=== PATIENT | male | born 1945 | race Caucasian/White ===

== ENCOUNTER 2017-09-13 07:06 | Emergency (ER) | payer OTHER ==
[2017-09-13 07:18] VITALS: TEMP 98.4; BMI 25.6
[2017-09-13] MEDS ORDERED: SODIUM CHLORIDE 1,000 ML IV STA ×3 (07:37→09:48)
[2017-09-13] MEDS ORDERED: ASPIRIN CHEWABLE PO STA (07:50)
--- NOTE | 2017-09-13 08:00 | DI ---
EXAM: Portable chest HISTORY: Chest pain COMPARISON: None. FINDINGS: The heart is top normal in size. Atherosclerotic changes are seen involving arch. They a re benign granulomatous changes. Focal opacity is noted medially at the right lung base. The left rachel ng is clear. Calcified lymph nodes are seen in the right paratracheal region.. There is a right mona ulder arthroplasty. IMPRESSION: Heart is top normal in size. Focal opacity medial right lung base which may represent a small focus of infiltrate. Suggest follow -up comparative two-view chest to ensure resolution
--- NOTE | 2017-09-13 08:55 | ED.PDOC ---
General ED Provider: Dr. LOBO APONTE-ER Chief Complaint: Chest Pain Stated Complaint: brought in by ems for chest pain radiating into the neck-- woke him up--no pain now Time Seen by Physician: 07:15 Mode of Arrival: Stretcher Information Source: Patient, Family Exam Limitations: No limitations Primary Care Provider: TONY DESAI Nursing and Triage Documentation Reviewed and Agree: Yes Reviewed sepsis parameters & appropriate labs ordered?: Yes System Inflammatory Response Syndrome: Not Applicable Sepsis Protocol: For patient's 13 years and over: Temp is 96.8 and below OR 101 and greater Pulse >90 BPM Resp >20/minute Acutely Altered Mental Status Are patient's symptoms suggestive of a new infection, such as: -Pneumonia -Skin, Soft Tissue -Endocarditis -UTI -Bone, Joint Infection -Implantable Device -Acute Abdominal Infection -Wound Infection -Meningitis -Blood Stream Catheter Infection -Unknown Cardiovascular Complaint Exam - Chest Pain Complaint/Exam Onset: Sudden Duration: a few min Symptoms Are: Resolved Timing: Constant Initial Severity: Moderate Current Severity: None Location: Reports: Diffuse Pain Radiates: Reports: Neck Character: Reports: Dull, Aching, Heaviness, Pressure Aggravating: Reports: None Alleviating: Reports: None Associated Signs and Symptoms: Reports: Back pain TAD Risk Factors: Reports: None Prior Care for this Complaint: Yes Recent Stress Test: No Recent Echo/LV Function: No JVD Present: No Subcutaneous Emphysema Present: No Diminshed Breath Sounds: No Bilateral Pulses Present: Yes Unequal Pulses Noted: No Differential Diagnoses: Acute IA, ACS, Unstable Angina Quality Indicator For Non-Traumatic Chest Pain/Syncope: EKG Performed Review of Systems - Review Of Systems Constitutional: Reports: No symptoms Eyes: Reports: No symptoms Ears, Nose, Mouth, Throat: Reports: No symptoms Respiratory: Reports: No symptoms Cardiac: Reports: Chest pain GI: Reports: No symptoms : Reports: No symptoms Musculoskeletal: Reports: Neck pain Skin: Reports: No symptoms Neurological: Reports: No symptoms Endocrine: Reports: No symptoms Hematologic/Lymphatic: Reports: No symptoms All Other Systems: Reviewed and Negative Past Medical History - Past Medical History Previously Healthy: Yes Endocrine: Reports: Unknown Cardiovascular: Reports: Hypertension Respiratory: Reports: Unknown Hematological: Reports: Unknown Gastrointestinal: Reports: Unknown Genitourinary: Reports: Unknown Neuro/Psych: Reports: Unknown Musculoskeletal: Reports: Back Pain Cancer: Reports: Unknown - Surgical History General Surgical History: Reports: Unknown - Family History Family History: Reports: Unknown - Social History Smoking Status: Never smoker Hx Substance Use: No Alcohol Screening: Occasionally Lives: With family Physical Exam - Physical Exam Appearance: Well-appearing, No pain distress, Well-nourished Eyes: RAMSEY, EOMI, Conjunctiva clear ENT: Ears normal, Nose normal, Oropharynx normal Neck: Supple Respiratory: Airway patent, Breath sounds clear, Breath sounds equal, Respirations nonlabored Cardiovascular: RRR, Pulses normal, No rub, No murmur GI/: Soft, Nontender, No masses, Bowel sounds normal, No Organomegaly Musculoskeletal: Normal strength, ROM intact, No edema, No calf tenderness Skin: Warm, Dry, Normal color Neurological: Sensation intact, Motor intact, Reflexes intact, Cranial nerves intact, Alert, Oriented Psychiatric: Affect appropriate, Mood appropriate, Anxious Interpretation - Radiology Interpretation Radiology Interpretation By: Radiologist Radiology Results: Positive Exam Interpreted: CXR ("focal opacity right medial lung base") - EKG Interpretation Time of EKG #1: 09:15 Rate: Normal [place]: Right (rbbb) ST Segment: Normal Interpretation: rbbb Procedures - Intubation Indication: Present: Altered Mental Status, Airway Protection Time of Intubation: 10:59 Medications: Yes: Norcuron, Succinylcholine, Propofol Type of Tube Used: Endotracheal Tube Size: 7.5 Cricoid Pressure Used: Yes Tube Gracia Used: Yes Number of Attempts: 1 Suction Used: Yes Glidescope Used: Yes CO2 Detector Used: Yes Lung Sounds Equal Bilaterally: Yes Intubation Complications: Present: No complications Tube Inserted By: r bethany Tube Placement Verified by X-ray: Yes Re-Evaluation - Re-Evaluation Time of Re-Evaluation: 08:57 Status: Improved Vital Signs Stable: Yes Pain Level: 1 Appearance: NAD Lungs: Clear Skin: Warm and Dry Neuro: Alert and Oriented X3 CV: RRR - Re-Evaluation Time of Re-Evaluation: 10:35 Status: Worse (patient difficult to arouse--very somnolent) Vital Signs Stable: No (bp down to 70 systolic --levophed started) Pain Level: 0 Appearance: NAD Skin: Warm and Dry CV: RRR Additional Comments: dr desai and his brother here and aware of the above issue Critical Care Note - Critical Care Note Total Time (mins): 60 Course - Course Hematology/Chemistry: 09/13/17 07:15 09/13/17 07:15 Orders, Labs, Meds: Lab Review 09/13/17 09/13/17 09/13/17 07:15 07:15 07:15 WBC 18.22 H RBC 3.00 L Hgb 9.9 L Hct 30.0 L MCV 100.0 H MCH 33.0 H MCHC 33.0 RDW Coeff of Alejandrina 15.2 H Plt Count 239 Immature Gran % (Auto) 0.5 Neut % (Auto) 86.8 Lymph % (Auto) 4.3 L [place] % (Auto) 8.0 Eos % (Auto) 0.2 Baso % (Auto) 0.2 Immature Gran # (Auto) 0.1 Neut # (Auto) 15.8 H Lymph # (Auto) 0.8 [place] # (Auto) 1.5 Eos # (Auto) 0.0 Baso # (Auto) 0.0 D-Dimer (Manual) 685.89 Puncture Site O2 Saturation ABG pH ABG pCO2 ABG pO2 ABG HCO3 ABG Total CO2 ABG Base Excess Sodium 131 L Potassium 6.0 H Chloride 101 Carbon Dioxide 12 L Anion Gap 24.0 BUN 66 H* Creatinine 5.27 H* Estimated GFR (MDRD) 11.00 BUN/Creatinine Ratio 12.52 Glucose 93 Lactic Acid Calcium 8.7 Total Bilirubin 1.6 H AST 290 H ALT 89 H Alkaline Phosphatase 58 Total Creatine Kinase 76820 CK-MB (CK-2) 169.4 H* CK-MB (CK-2) % 1.18525 Troponin I 1.1450 H* Total Protein 7.2 Albumin 3.2 L Globulin 4.0 Albumin/Globulin Ratio 0.80 Amylase 76 Lipase 9 Procalcitonin TSH Free T4 Salicylate Level mg/dL Acetaminophen Plasma/Serum Alcohol 09/13/17 09/13/17 09/13/17 07:15 07:15 07:40 WBC RBC Hgb Hct MCV MCH MCHC RDW Coeff of Alejandrina Plt Count Immature Gran % (Auto) Neut % (Auto) Lymph % (Auto) [place] % (Auto) Eos % (Auto) Baso % (Auto) Immature Gran # (Auto) Neut # (Auto) Lymph # (Auto) [place] # (Auto) Eos # (Auto) Baso # (Auto) D-Dimer (Manual) Puncture Site O2 Saturation ABG pH ABG pCO2 ABG pO2 ABG HCO3 ABG Total CO2 ABG Base Excess Sodium Potassium Chloride Carbon Dioxide Anion Gap BUN Creatinine Estimated GFR (MDRD) BUN/Creatinine Ratio Glucose Lactic Acid Calcium Total Bilirubin AST ALT Alkaline Phosphatase Total Creatine Kinase CK-MB (CK-2) 165.5 H* CK-MB (CK-2) % Troponin I Total Protein Albumin Globulin Albumin/Globulin Ratio Amylase Lipase Procalcitonin TSH 0.518 Free T4 0.89 Salicylate Level mg/dL < 5.0 Acetaminophen < 3 L Plasma/Serum Alcohol < 10.0 09/13/17 09/13/17 09/13/17 09:11 10:30 10:30 WBC RBC Hgb Hct MCV MCH MCHC RDW Coeff of Alejandrina Plt Count Immature Gran % (Auto) Neut % (Auto) Lymph % (Auto) [place] % (Auto) Eos % (Auto) Baso % (Auto) Immature Gran # (Auto) Neut # (Auto) Lymph # (Auto) [place] # (Auto) Eos # (Auto) Baso # (Auto) D-Dimer (Manual) Puncture Site Lbrach O2 Saturation 89.0 L ABG pH 7.216 L* ABG pCO2 40.2 ABG pO2 68.0 L ABG HCO3 16.3 L ABG Total CO2 18 L ABG Base Excess -11 L Sodium Potassium Chloride Carbon Dioxide Anion Gap BUN Creatinine Estimated GFR (MDRD) BUN/Creatinine Ratio Glucose Lactic Acid 9.3 Calcium Total Bilirubin AST ALT Alkaline Phosphatase Total Creatine Kinase CK-MB (CK-2) CK-MB (CK-2) % Troponin I Total Protein Albumin Globulin Albumin/Globulin Ratio Amylase Lipase Procalcitonin 4.94 TSH Free T4 Salicylate Level mg/dL Acetaminophen Plasma/Serum Alcohol Orders Category Date Time Status ABG DRAW REQUEST Stat CARDIO 09/13/17 09:11 Ordered EKG-(ED ONLY) Stat CARDIO 09/13/17 07:14 Ordered Canopy Stringer [ED FARMWORKER VEGETABLE APPLIED] .ONCE EMERGENCY 09/13/17 07:15 Active Matta [ED CATHETER INSERTION AND CARE] .ONCE EMERGENCY 09/13/17 10:37 Active IV [ED IV/MEDIPORT/POWERPORT] .ONCE EMERGENCY 09/13/17 07:15 Active OXYGEN [ED APPLY O2] .ONCE EMERGENCY 09/13/17 09:45 Active AMYLASE Stat LAB 09/13/17 07:15 Completed ARTERIAL BLOOD GAS [ABG] Stat LAB 09/13/17 09:11 Completed BLOOD ALCOHOL Stat LAB 09/13/17 07:15 Completed BLOOD CULTURE (ED ONLY) Stat LAB 09/13/17 10:30 Received CBC W/ AUTO DIFF Stat LAB 09/13/17 07:15 Completed COMPREHENSIVE METABOLIC PANEL Stat LAB 09/13/17 07:15 Completed CREATINE KINASE Stat LAB 09/13/17 07:15 Completed D-DIMER Stat LAB 09/13/17 07:15 Completed FREE T4 (FREE THYROXINE) Stat LAB 09/13/17 07:15 Completed LACTIC ACID Stat LAB 09/13/17 10:30 Completed LIPASE Stat LAB 09/13/17 07:15 Completed PROCALCITONIN Stat LAB 09/13/17 10:30 Completed SALICYLATE Stat LAB 09/13/17 07:40 Completed TROPONIN I Stat LAB 09/13/17 07:15 Completed TSH [THYROID STIMULATING HORMONE] Stat LAB 09/13/17 07:15 Completed TYLENOL LEVEL [ACETAMINOPHEN] Stat LAB 09/13/17 07:40 Completed URINALYSIS C & S IF INDICATED Stat LAB 09/13/17 09:50 Ordered URINE DRUG SCREEN (RAPID FOR ED) [DRUG SCREEN, URINE, LAB 09/13/17 09:50 Ordered RAPID] Stat 0.9 % Sodium Chloride [Saline Flush] MEDS 09/13/17 07:15 Active 1 syr IVF PRN PRN 0.9 % Sodium Chloride [Sodium Chloride] 246 ml MEDS 09/13/17 10:30 Active Norepinephrine Bitartrate Inj [Levophed] 4 mg IV 8 mcg/min Aspirin [Aspirin Chewable] MEDS 09/13/17 07:50 Discontinued 324 mg PO ONCE STA Dextrose 50 % in Water [Dextrose 50%-Water Abboject] MEDS 09/13/17 09:09 Discontinued 50 ml IVP ONCE STA Insulin Regular, Human [Humulin R] MEDS 09/13/17 09:12 Discontinued 5 unit IVP ONCE STA Lidocaine HCl [Uro-Jet] MEDS 09/13/17 10:45 Discontinued 10 ml MUCOUSMEMB .STK-MED ONE Lidocaine HCl [Uro-Jet] MEDS 09/13/17 10:37 Discontinued 10 ml MUCOUSMEMB ONCE STA Piperacillin Sodium/Tazobactam [Zosyn 2.25 gm] 2.25 gm MEDS 09/13/17 11:12 Active 0.9 % Sodium Chloride [Sodium Chloride] 50 ml IV ONCE Propofol Inj [Diprivan 20 ml Vial] MEDS 09/13/17 10:58 Discontinued 80 mg IVP ONCE STA Sodium Chloride 0.9% [Sodium Chloride] 1,000 ml MEDS 09/13/17 09:48 Discontinued IV 1,000 mls/hr Sodium Chloride 0.9% [Sodium Chloride] 1,000 ml MEDS 09/13/17 09:13 Discontinued IV 125 mls/hr Sodium Chloride 0.9% [Sodium Chloride] 1,000 ml MEDS 09/13/17 07:37 Discontinued IV BOLUS Succinylcholine Chloride [Anectine] MEDS 09/13/17 10:57 Discontinued 100 mg IVP ONCE STA Vecuronium [place] [Norcuron] MEDS 09/13/17 10:58 Discontinued 8 mg IVP ONCE STA CT HEAD W/O CONTRAST Stat RADS 09/13/17 10:37 Completed CXR [CHEST, 1V AP ONLY] Stat RADS 09/13/17 07:19 Completed CXR [CHEST, 1V AP ONLY] Stat RADS 09/13/17 10:59 Taken Medications Generic Name Dose Route Start Last Admin Trade Name Freq PRN Reason Stop Dose Admin Norepinephrine Bitartrate 4 mg 250 mls @ 30 mls/hr 09/13/17 10:30 09/13/17 10 :56 / Sodium Chloride IV 4 mcg/min .Q8H20M PIETRO 15 mls/hr Protocol Titration 8 MCG/MIN Piperacillin Sod/Tazobactam 50 mls @ 50 mls/hr 09/13/17 11:12 Sod 2.25 gm/ Sodium Chloride IV 09/13/17 12:11 ONCE STA Sodium Chloride 1 syr 09/13/17 07:15 09/13/17 09:25 Saline Flush IVF 1 syr PRN PRN Administration To flush IV Discontinued Medications Generic Name Dose Route Start Last Admin Trade Name Freq PRN Reason Stop Dose Admin Aspirin 324 mg 09/13/17 07:50 09/13/17 07:57 Aspirin Chewable PO 09/13/17 07:51 324 mg ONCE STA Administration Dextrose 50 ml 09/13/17 09:09 09/13/17 09:23 Dextrose 50%-Water Abboject IVP 09/13/17 09:10 50 ml ONCE STA Administration Sodium Chloride 1,000 mls @ 1,000 mls/hr 09/13/17 07:37 09/13/17 07:57 Sodium Chloride IV 09/13/17 08:36 1,000 mls/hr BOLUS STA Administration Sodium Chloride 1,000 mls @ 125 mls/hr 09/13/17 09:13 09/13/17 09:25 Sodium Chloride IV 09/13/17 17:12 125 mls/hr .Q8H STA Administration Sodium Chloride 1,000 mls @ 1,000 mls/hr 09/13/17 09:48 09/13/17 09:50 Sodium Chloride IV 09/13/17 10:12 1,000 mls/hr .Q1H STA Administration Insulin Human Regular 5 unit 09/13/17 09:12 09/13/17 09:22 Humulin R IVP 09/13/17 09:13 5 unit ONCE STA Administration Lidocaine HCl 10 ml 09/13/17 10:37 Uro-Jet MUCOUSMEMB 09/13/17 10:38 ONCE STA Propofol 80 mg 09/13/17 10:58 09/13/17 11:07 Diprivan 20 Ml Vial IVP 09/13/17 10:59 80 mg ONCE STA Administration Succinylcholine Chloride 100 mg 09/13/17 10:57 09/13/17 11:02 Anectine IVP 09/13/17 10:58 100 mg ONCE STA Administration Vecuronium [place] 8 mg 09/13/17 10:58 09/13/17 11:10 Norcuron IVP 09/13/17 10:59 8 mg ONCE STA Administration dr desai asked for the patient to be transferred to [facility] but they indicated they were on diversion--consulted his brother--indicated ok for [facility]ze transfer ) Vital Signs: Temp Pulse Resp BP Pulse Ox 09/13/17 10:56 77 20 131/71 09/13/17 10:26 75 20 77/47 L 09/13/17 10:12 84/50 L 09/13/17 07:08 98.4 F 89 20 105/55 L 96 KEHINDE Risk Score KEHINDE Risk Score: Risk Score Odds of by 30D 0 0.1 (0.1-0.2) 1 0.3 (0.2-0.3) 2 0.4 (0.3-0.5) 3 0.7 (0.6-0.9) 4 1.2 (1.0-1.5) 5 2.2 (1.9-2.6) 6 3.0 (2.5-3.6) 7 4.8 (3.8-6.1) Departure - Departure Time of Disposition: 11:26 Disposition: TSF SHORT-TRM HOSP Discharge Problem: BELIA (acute kidney injury), Hyperkalemia, Elevated troponin I measurement Chest pain Qualifiers: Chest pain type: unspecified Qualified Code(s): R07.9 - Chest pain, unspecified Rhabdomyolysis Qualifiers: Rhabdomyolysis type: non-traumatic Qualified Code(s): M62.82 - Rhabdomyolysis Instructions: Acute Kidney Injury (DC) Condition: Poor Pt referred to PMD for follow-up: Yes IPMP verified?: No Allergies/Adverse Reactions: Allergies No Known Allergies Allergy (Verified 09/13/17 07:18) Home Medications: Ambulatory Orders Ferrous Sulfate 325 mg PO BID 11/10/13 Losartan Potassium [Cozaar] 100 mg PO DAILY 11/10/13 [place]-3 Fatty Acids/Fish Oil [Fish Oil 1,000 mg Capsule] 3 each PO DAILY Hydrocodone Bit/Acetaminophen [[place] 5-325] 1 each PO Q6HR PRN 09/13/17 Transfer Form Completed: Yes Disposition Discussed With: Family
[2017-09-13] MEDS ORDERED: DEXTROSE 50%-WATER ABBOJECT IVP STA (09:09)
[2017-09-13] MEDS ORDERED: HUMULIN R IVP STA (09:12)
[2017-09-13] MEDS ORDERED: LEVOPHED 4 MG in SODIUM CHLORIDE 246 ML IV SCH (10:30)
[2017-09-13] MEDS ORDERED: URO-JET MUCOUSMEMB STA (10:37)
[2017-09-13] MEDS ORDERED: URO-JET MUCOUSMEMB ONE (10:45)
[2017-09-13] MEDS ORDERED: ANECTINE IVP STA (10:57)
[2017-09-13] MEDS ORDERED: NORCURON IVP STA ×2 (10:58→11:42)
[2017-09-13] MEDS ORDERED: DIPRIVAN 20 ML VIAL IVP STA (10:58)
--- NOTE | 2017-09-13 11:05 | CT ---
The EXAM: CT scan of head without contrast. HISTORY: CHANGE COMPARISON: None. TECHNIQUE: Axial scans acquired at 5 mm slice thicknesses. MPR coronal and sagittal sequence complet ed FINDINGS: There is no intra or extra-axial hemorrhage seen. No mass or shift of midline structures is seen. There is some cortical atrophy involving the frontal and parietal lobes. There is decrease d attenuation seen in the periventricular matter consistent with chronic microvascular ischemic whipple es. No acute large vessel cerebrovascular accident is seen. Ventricles appear normal considering de gree of atrophy. There are no air-fluid levels visualized sinuses and no opacification mastoid air c ells is seen. IMPRESSION: 1. No acute intracranial finding is seen. 2. No intracranial hemorrhage or large vessel cerebrovascular accident identified. 3. Age appropriate cortical atrophy is seen as well as some chronic white matter ischemic changes.
--- NOTE | 2017-09-13 11:10 | ED.PDOC ---
Procedures - Intubation Indication: Present: Altered Mental Status Time of Intubation: 11:03 Medications: Yes: Succinylcholine, Propofol Type of Tube Used: Endotracheal Cricoid Pressure Used: No Tube Gracia Used: Yes Number of Attempts: 1 Suction Used: No Glidescope Used: No CO2 Detector Used: Yes Lung Sounds Equal Bilaterally: Yes Intubation Complications: Present: No complications Tube Inserted By: Ketan montoya CRNA Tube Placement Verified by X-ray: Yes Conscious Sedation - Pre-op Assessment Weight: 154 lb 1.65 oz Surgical History: RIGHT HIP REPLACEMENT - Medical History Past Medical History: Hypertension, Other Other History: "flapper valve" - Physical Exam Heart Rate/Rhythm: Regular Rate
[2017-09-13] MEDS ORDERED: ZOSYN 2.25 GM 2.25 GM in SODIUM CHLORIDE 50 ML IV STA (11:12)
[2017-09-13 11:13] VITALS: BP 131/71
--- NOTE | 2017-09-13 11:56 | DI ---
EXAM: Portable chest HISTORY: Intubation COMPARISON: Single-view chest performed earlier the same day FINDINGS: The tip of an endotracheal tube is in good position above the mimi. The cardiomediastin al silhouette is stable. Calcified lymph nodes are seen in the right paratracheal region. There are low lung volumes with mild central congestion. IMPRESSION: Stable cardiomediastinal silhouette with mild central congestion. Endotracheal tube is satisfactory position
== END 2017-09-13 12:05 | disposition short-term general hospital (02) ==
LOC: ED 07:06
DX: N17.9 Acute kidney failure, unspecified (principal); R07.9 Chest pain, unspecified; M62.82 Rhabdomyolysis; E87.5 Hyperkalemia; M54.2 Cervicalgia; I10 Essential (primary) hypertension; R41.82 Altered mental status, unspecified; R79.89 Other specified abnormal findings of blood chemistry; M54.5 Low back pain
CPT/HCPCS: 36415; 80053; 80306; 80307; 81001; 82150; 82550; 82553; 82803; 83605; 83690; 84145; 84439; 84443; 84484; 85025; 85379; 87040; 93005; 93010; 96361; 96365; 96367; 96375; 96376; 99291

== ENCOUNTER 2017-09-18 15:25 | Emergency (ER) ==
[2017-09-18 15:42] VITALS: BP 145/59; TEMP 97.8; BMI 27.2
[2017-09-18] MEDS ORDERED: NARCAN IVP STA ×2 (16:20→17:24)
--- NOTE | 2017-09-18 16:31 | CT ---
EXAM: CT Head HISTORY: Altered COMPARISON: 09/13/2017 TECHNIQUE: CT head performed without contrast FINDINGS: There is no mass effect, midline shift, or intracranial hemmorhage. Nicholson white differenti ation is preserved. There is no extra-axial collection. The ventricles, sulci, and basal cisterns a re patent and symmetric. There is mild chronic ischemic disease of the white matter and cerebral vol ume loss. There is no depressed calvarial fracture. The mastoid air cells are clear. Mild mucosal t hickening ethmoid air cells. There are intracranial atherosclerotic calcifications. 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 IMPRESSION: 1. No acute intracranial abnormality. 2. Mild chronic ischemic disease of the white matter and cerebral volume loss. 3. Mild sinusitis.
--- NOTE | 2017-09-18 17:14 | ED.PDOC ---
General ED Provider: Dr. KARLA SIDHU Chief Complaint: Altered Mental Status Stated Complaint: ALTERED MENTAL STATUS Time Seen by Physician: 15:39 Mode of Arrival: Wheelchair Information Source: Family Exam Limitations: No limitations Primary Care Provider: TONY VASQUEZ Referred to ED by: Other (A BOTTLE OF NORCO CONTAINING ABOUT 90 PILLS IS MISSING) Nursing and Triage Documentation Reviewed and Agree: Yes (WAS D/C FROM [facility] ON September) Reviewed sepsis parameters & appropriate labs ordered?: Yes (ARRIVED LETHARGIC BUT EASILY AROUSABLE) System Inflammatory Response Syndrome: Not Applicable Sepsis Protocol: For patient's 13 years and over: Temp is 96.8 and below OR 101 and greater Pulse >90 BPM Resp >20/minute Acutely Altered Mental Status Are patient's symptoms suggestive of a new infection, such as: -Pneumonia -Skin, Soft Tissue -Endocarditis -UTI -Bone, Joint Infection -Implantable Device -Acute Abdominal Infection -Wound Infection -Meningitis -Blood Stream Catheter Infection -Unknown System Inflammatory Response Syndrome: Not Applicable Review of Systems - Review Of Systems Constitutional: Reports: No symptoms Eyes: Reports: No symptoms Ears, Nose, Mouth, Throat: Reports: No symptoms Respiratory: Reports: No symptoms Cardiac: Reports: No symptoms GI: Reports: No symptoms : Reports: No symptoms Musculoskeletal: Reports: No symptoms Skin: Reports: No symptoms Neurological: Reports: Other (ALTERED LOC ) Endocrine: Reports: No symptoms Hematologic/Lymphatic: Reports: No symptoms All Other Systems: Reviewed and Negative Past Medical History - Past Medical History Previously Healthy: Yes Endocrine: Reports: Unknown Cardiovascular: Reports: Hypertension Respiratory: Reports: Unknown Hematological: Reports: Unknown Gastrointestinal: Reports: Unknown Genitourinary: Reports: Unknown Neuro/Psych: Reports: Unknown Musculoskeletal: Reports: Back Pain Cancer: Reports: Unknown - Surgical History General Surgical History: Reports: Unknown - Family History Family History: Reports: Unknown - Social History Smoking Status: Never smoker Hx Substance Use: No Alcohol Screening: Occasionally Physical Exam - Physical Exam Appearance: Well-appearing Eyes: RAMSEY, EOMI ([place] PUPILS ) ENT: Ears normal, Nose normal, Oropharynx normal Respiratory: Airway patent, Breath sounds clear, Breath sounds equal, Respirations nonlabored Cardiovascular: RRR, Pulses normal, No rub, No murmur GI/: Soft, Nontender, No masses, Bowel sounds normal, No Organomegaly Musculoskeletal: Normal strength, ROM intact, No edema, No calf tenderness Skin: Warm, Dry, Normal color Neurological: Sensation intact, Motor intact, Reflexes intact, Cranial nerves intact, Alert, Oriented Psychiatric: Affect appropriate, Mood appropriate Interpretation - Radiology Interpretation Radiology Interpretation By: Radiologist Radiology Results: No acute changes Exam Interpreted: CT Scan Re-Evaluation - Re-Evaluation Time of Re-Evaluation: 16:32 (POST NARCAN NOTED TO BE AOX3 NOT LETHARGIC) Status: Improved Vital Signs Stable: Yes Pain Level: 0 Appearance: NAD Lungs: Clear Skin: Warm and Dry Neuro: Alert and Oriented X3 CV: RRR Physician Notification - Case Discussed Physician Notified: PMD Time of Notification: 17:16 (TRANSFER ) Critical Care Note - Critical Care Note Total Time (mins): 0 Course - Course Hematology/Chemistry: 09/18/17 15:52 09/18/17 15:52 Orders, Labs, Meds: Lab Review 09/18/17 09/18/17 09/18/17 15:52 15:52 15:52 WBC 9.32 RBC 2.87 L Hgb 9.2 L Hct 28.9 L MCV 100.7 H MCH 32.1 H MCHC 31.8 RDW Coeff of Alejandrina 14.9 H Plt Count 259 Immature Gran % (Auto) 0.6 Neut % (Auto) 74.5 Lymph % (Auto) 12.0 Till[place] % (Auto) 10.2 H Eos % (Auto) 2.1 Baso % (Auto) 0.6 Immature Gran # (Auto) 0.1 Neut # (Auto) 6.9 Lymph # (Auto) 1.1 Tillman # (Auto) 1.0 Eos # (Auto) 0.2 Baso # (Auto) 0.1 Sodium 139 Potassium 4.1 Chloride 102 Carbon Dioxide 26 Anion Gap 15.1 BUN 22 H Creatinine 1.17 H Estimated GFR (MDRD) 61.00 BUN/Creatinine Ratio 18.80 Glucose 105 Calcium 9.7 Total Bilirubin 1.1 AST 92 H ALT 75 Alkaline Phosphatase 55 L Total Creatine Kinase 1650 CK-MB (CK-2) 45.6 H* CK-MB (CK-2) % 2.65284 Troponin I 0.1120 Total Protein 6.9 Albumin 2.9 L Globulin 4.0 Albumin/Globulin Ratio 0.73 Procalcitonin 16.80 TSH Free T4 Salicylate Level mg/dL Acetaminophen 09/18/17 09/18/17 09/18/17 15:52 15:52 15:52 WBC RBC Hgb Hct MCV MCH MCHC RDW Coeff of Alejandrina Plt Count Immature Gran % (Auto) Neut % (Auto) Lymph % (Auto) [place] % (Auto) Eos % (Auto) Baso % (Auto) Immature Gran # (Auto) Neut # (Auto) Lymph # (Auto) [place] # (Auto) Eos # (Auto) Baso # (Auto) Sodium Potassium Chloride Carbon Dioxide Anion Gap BUN Creatinine Estimated GFR (MDRD) BUN/Creatinine Ratio Glucose Calcium Total Bilirubin AST ALT Alkaline Phosphatase Total Creatine Kinase CK-MB (CK-2) CK-MB (CK-2) % Troponin I Total Protein Albumin Globulin Albumin/Globulin Ratio Procalcitonin TSH 0.915 Free T4 1.16 Salicylate Level mg/dL < 5.0 Acetaminophen < 3 L Orders Category Date Time Status EKG-(ED ONLY) Stat CARDIO 09/18/17 15:38 Completed EKG-(IP & OP ONLY) DAILY CARDIO 09/20/17 06:00 Stop Req EKG-(IP & OP ONLY) DAILY CARDIO 09/21/17 06:00 Stop Req BLOOD GLUCOSE MONITORING ACCUCHECK Q6H CARE 09/18/17 17:09 Inactive INTAKE & OUTPUT Q8HR CARE 09/18/17 17:09 Inactive VITAL SIGNS Q4HR CARE 09/18/17 17:09 Inactive ED IV/MEDIPORT/POWERPORT .ONCE EMERGENCY 09/18/17 15:38 Active ASPIRIN LEVEL [SALICYLATE] Stat LAB 09/18/17 15:52 Completed BLOOD CULTURE (ED ONLY) Stat LAB 09/18/17 15:52 Received CBC W/ AUTO DIFF Stat LAB 09/18/17 15:52 Completed COMPREHENSIVE METABOLIC PANEL Stat LAB 09/18/17 15:52 Completed CREATINE KINASE Q8H LAB 09/18/17 23:15 Stop Req CREATINE KINASE Stat LAB 09/18/17 15:52 Completed FREE T4 (FREE THYROXINE) Stat LAB 09/18/17 15:52 Completed PROCALCITONIN Stat LAB 09/18/17 15:52 Completed THYROID STIMULATING HORMONE Stat LAB 09/18/17 15:52 Completed TROPONIN I Q8H LAB 09/18/17 23:15 Stop Req TROPONIN I Stat LAB 09/18/17 15:52 Completed TYLENOL LEVEL [ACETAMINOPHEN] Stat LAB 09/18/17 15:52 Completed URINALYSIS C & S IF INDICATED Stat LAB 09/18/17 15:37 Uncollected URINE DRUG SCREEN (RAPID FOR ED) [DRUG SCREEN, URINE, LAB 09/18/17 15:39 Uncollected RAPID] Stat 0.9 % Sodium Chloride [Saline Flush] MEDS 09/18/17 15:38 Active 1 syr IVF PRN PRN Naloxone HCl [Narcan] MEDS 09/18/17 16:20 Discontinued 0.4 mg IVP ONCE STA Naloxone HCl [Narcan] MEDS 09/18/17 17:24 Discontinued 0.4 mg IVP ONCE STA Naloxone HCl [Narcan] MEDS 09/18/17 17:54 Discontinued 2 mg .ROUTE .STK-MED ONE Naloxone HCl [Narcan] 2 mg MEDS 09/18/17 17:55 Active Sodium Chloride 0.9% [Sodium Chloride] 500 ml IV ONCE Sodium Chloride 0.9% [Sodium Chloride] 1,000 ml MEDS 09/18/17 17:30 Active IV 100 mls/hr CT HEAD W/O CONTRAST Stat RADS 09/18/17 15:38 Completed Medications Generic Name Dose Route Start Last Admin Trade Name Freq PRN Reason Stop Dose Admin Sodium Chloride 1,000 mls @ 100 mls/hr 09/18/17 17:30 Sodium Chloride IV .Q10H PIETRO Naloxone HCl 2 mg/ Sodium 502 mls @ 125 mls/hr 09/18/17 17:55 Chloride IV 09/18/17 21:55 ONCE ONE Sodium Chloride 1 syr 09/18/17 15:38 09/18/17 17:35 Saline Flush IVF 1 syr PRN PRN Administration To flush IV Discontinued Medications Generic Name Dose Route Start Last Admin Trade Name Freq PRN Reason Stop Dose Admin Naloxone HCl 0.4 mg 09/18/17 16:20 09/18/17 16:31 Narcan IVP 09/18/17 16:21 0.4 mg ONCE STA Administration Naloxone HCl 0.4 mg 09/18/17 17:24 09/18/17 17:28 Narcan IVP 09/18/17 17:25 0.4 mg ONCE STA Administration Vital Signs: Temp Pulse Resp BP Pulse Ox 09/18/17 15:35 97.8 F 79 20 145/59 H 65 L Departure - Departure Time of Disposition: 18:00 Disposition: HOME SELF-CARE Discharge Problem: Altered mental status, Anemia Instructions: Altered Mental Status (ED) Condition: Good Pt referred to PMD for follow-up: Yes IPMP verified?: No Additional Instructions: Please call your Family Physician as soon as possible to schedule a follow-up appointment. Allergies/Adverse Reactions: Allergies No Known Allergies Allergy (Verified 09/13/17 07:18) Home Medications: Ambulatory Orders Losartan Potassium [Cozaar] 100 mg PO DAILY 11/10/13 Hydrocodone Bit/Acetaminophen [[place] 5-325] 1 each PO TID PRN 09/13/17 Bisoprolol/Hydrochlorothiazide [Bisoprolol-Hctz 5-6.25 mg Tab] 1 each PO DAILY 09/18/17 Clonazepam [Klonopin] 0.5 mg PO DAILY 09/18/17 Metoprolol Tartrate [Lopressor] 25 mg PO BID 09/18/17 Pantoprazole Sodium [Protonix] 40 mg PO QDAC 09/18/17 Disposition Discussed With: Patient, Family
[2017-09-18] MEDS ORDERED: SODIUM CHLORIDE 1,000 ML IV SCH (17:30)
[2017-09-18] MEDS ORDERED: NARCAN ONE (17:54)
[2017-09-18] MEDS ORDERED: SODIUM CHLORIDE IV ONE (17:55)
[2017-09-18] MEDS ORDERED: NARCAN IV ONE (17:55)
== END 2017-09-18 20:17 | disposition home or self-care (01) ==
LOC: ED 15:25
DX: R41.82 Altered mental status, unspecified (principal); R40.4 Transient alteration of awareness; D64.9 Anemia, unspecified; R53.83 Other fatigue; R47.81 Slurred speech; I10 Essential (primary) hypertension; Z79.899 Other long term (current) drug therapy
CPT/HCPCS: 36415; 80053; 80307; 82550; 82553; 84145; 84439; 84443; 84484; 85025; 87040; 93005; 93010; 96365; 96375; 96376; 99285

== ENCOUNTER 2018-01-22 13:01 | Outpatient (CLI) ==
--- NOTE | 2018-01-22 13:51 | US ---
EXAM: Bilateral carotid artery Doppler History: Dizziness. Technique: Multiple sonographic images through the bilateral internal carotid arteries were obtained . Color duplex Doppler was used to interrogate vascular flow. Findings: The right ICA peak systolic velocity is within normal limits measuring 90 cm/sec. The right ICA/cca PSV ratio is normal at 0.90. The right vertebral artery is patent and demonstrates antegrade flow. Godinez scale images demonstrate mild plaque buildup within the right internal carotid artery. The left ICA peak systolic velocity is within normal limits measuring 90 cm/sec. The left ICA/cca PS V ratio is normal at 1.1. The left vertebral artery is patent and demonstrates antegrade flow. Godinez scale images demonstrate mild plaque buildup within the left internal carotid artery. Impression: No significant hemodynamic stenosis of the bilateral internal carotid arteries.
--- NOTE | 2018-01-22 15:40 | MRI ---
EXAM: MRI brain without IV contrast. DATE: 01/22/2018. HISTORY: Dizziness. TECHNIQUE: Sagittal T1W, axial T2W, axial FLAIR, axial T1W, axial DWI, and coronal T2W GRE sequences of the brain were obtained using 1.2 Denisse magnet. No IV contrast. COMPARISON: CT head 18 September 2017. FINDINGS: Tiny cavum septum pellucidum (normal variation) is noted anteriorly. The ventricles, cist erns, sulci and subarachnoid spaces are commensurately enlarged due to involutional change. No midli ne shift, mass effect or abnormal extra-axial fluid collection is apparent. No acute infarct, hemorr sole or neoplasm is identified. Small, confluent rim of T2W/FLAIR hyperintensity is observed in the white matter abutting each lateral ventricle. T2W bright, T1W dark, 2 mm foci scattered within the b magi ganglia may represent prominent Virchow-Nima spaces and/or chronic lacunar infarcts. The hernandez - white matter differentiation is normal. The 7th/8th cranial nerve complexes, cerebellopontine angle s, brainstem, and visible cervical spinal cord are normal. There is no cerebellar tonsillar ectopia. The pituitary gland is small in size, with CSF filling part of the pituitary fossa. Corpus callosu m is normal in size and configuration. The vertebral arteries and basilar artery are narrow in diame ter. Each PCOM appears prominent. Flow voids are present in the major intracranial arteries and in the dural venous sinuses. No aneurysm, AVM or dural venous sinus thrombosis is apparent. No orbit a bnormality is identified. The mastoid air cells are unremarkable. There is no acute sinusitis. No neck mass or lymphadenopathy is detected. No calvarial neoplasm or acute fracture is evident. 2 mm a nterolisthesis of C3 relative to C4 and pseudodisc bulge appeared cause mild central canal stenosis a t C3-4. IMPRESSIONS: 1. No acute infarct, hemorrhage, neoplasm or hydrocephalus. 2. Bilateral basal ganglia prominent Virchow-Nima spaces versus old infarcts. 3. Mild supratentorial small vessel disease. 4. 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 5. C3-4 DDD and mild central canal stenosis. 6. Narrow basilar and vertebral arteries. Correlate for vertebrobasilar insufficiency symptoms.
--- NOTE | 2018-01-22 16:57 | MRI ---
EXAM: MRI lumbar spine without IV contrast. DATE: 01/22/2018. HISTORY: Left-sided sciatica.. TECHNIQUE: Sagittal and axial T1W and T2W sequences of the lumbar spine along with sagittal IR and c oronal T2W sequences were obtained using 1.2 Denisse magnet. No IV contrast. COMPARISON: Chest x-ray 13 September 2017. MRI lumbar spine 24 September 2011. FINDINGS: There are five frr-gpo-spkknyk lumbar vertebra. Moderate rotatory levoscoliosis of the lo wer thoracic and lumbar spine, with apex of curvature at L2-3 is similar to September 2011. A 2 mm anter ior subluxation of L4 relative to L3 and 3 mm anterolisthesis of S1 relative to L5 are observed. The re is also approximately 4 mm left lateral subluxation of L2 relative to L1 and 6 mm left lateral sub luxation of L3 relative to L4. No other subluxation, acute fracture, osseous malignancy, or pars int erarticularis defect is demonstrated. The lumbar vertebra are normal in height. A T2W/T1W bright, 8 .6 x 7 x 9.3 mm focus in the L1 body is likely a benign hemangioma. Prominent osteophytes and degene rative endplate changes are observed throughout the lumbar spine. Mild T11-12, moderate L2-3, mild/m oderate L3-4, moderate L4-5, and marked L5-S1 disc space narrowing is detected. No acute sacral frac ture or stress reaction is identified. Anterior bridging osteophytes are noted in the left SI joint. No acute sacroiliitis is detected. Conus medullaris terminates at L1-2. No cord edema, syrinx, my elomalacia, or neoplasm is evident. No retroperitoneal lymphadenopathy, paraspinal mass, or aortic aneurysm is detected. Right psoas mus fernando is smaller than the left. Mild to moderate bilateral posterior paraspinal muscle atrophy is note d at L1 through S1. Visible portions of the liver, spleen, adrenal glands kidneys reveal no distinct neoplasm. No bowel obstruction or malignancy is apparent. Superior bladder wall measures up to 7.3 mm thick x 5 cm diameter. No bladder wall diverticulum is observed. Segmental analysis: T10-11: Sagittal images reveal small concentric disc bulge and mild facet arthropathy, which appeare d cause mild central canal stenosis and at least mild bilateral foraminal stenoses. T11-12: Sagittal images reveal minor anterior subluxation of T12, small concentric disc bulge, and m ild facet arthropathy causing mild central canal stenosis and moderate/marked bilateral foraminal juan noses. T12-L1: Moderate concentric disc bulge, mild facet arthropathy, and minor ligamentum flavum hypertro phy cause mild bilateral foraminal stenoses. No central canal stenosis. L1-2: Moderate concentric disc bulge, mild bilateral facet arthropathy, and mild ligamentum flavum h ypertrophy cause mild central canal stenosis and moderate bilateral foraminal stenoses. L2-3: Small concentric disc bulge, moderate right facet arthropathy, mild left facet arthropathy, an d mild ligamentum flavum hypertrophy cause triangulation of the canal, mild right foraminal stenosis, and minor left foraminal narrowing. Right L2 nerve root may contact the disc bulge near the lateral margin of the foramen. L3-4: Minor anterolisthesis of L4, small spondylotic ridge at the L3 inferior endplate, small concen tric disc bulge, superimposed midline disc protrusion (2 mm AP x 8 mm transverse), mild bilateral fac et arthropathy, and moderate ligamentum flavum hypertrophy cause moderate central canal stenosis, mod erate right foraminal stenosis, and mild left foraminal stenosis. Right L3 nerve root contacts the d isc bulge at the foramen. L4-5: Small concentric disc bulge, mild right facet arthropathy, mild/moderate left facet arthropath y, mild ligamentum flavum hypertrophy cause mild central canal stenosis, minor/mild right foraminal n arrowing, and moderate left foraminal stenosis. L5-S1: Moderate concentric disc bulge, spondylotic ridges at L5 and S1, mild facet arthropathy and m ild ligamentum flavum hypertrophy cause mild central canal stenosis, moderate right foraminal stenosi s, and marked left foraminal stenosis. Each L5 nerve root contacts the disc bulge/osteophyte near th e foramen. IMPRESSIONS: 1. Lumbar spine moderate rotatory levoscoliosis, marked spondylosis, mild/moderate facet arthropathy , minor subluxations, and multilevel DDD - - similar to September 2011. 2. Multilevel central canal stenoses (T10-11: Mild. T11-12: Mild. L1-2: Mild. L2-3: Minor. L3-4: Moderate. L4-5: Mild. L5-S1: Mild). 3. Multilevel lumbar foraminal stenoses. Right L2, right L3, and both L5 nerve roots contact disc b ulges /osteophytes near the foramen, and may be sources for pain/radiculopathy. 4. Benign hemangioma in the L1 body. Unexpected findin. Urinary bladder wall thickening - consider chronic cystitis. Because of the relatively focal nature of this, cystoscopy may be helpful to exclude a plaque-like neoplasm.
== END 2018-01-22 13:02 | disposition home or self-care (01) ==
LOC: RAD 13:01
PROVIDERS: ATTEND Internal Medicine
DX: R42 Dizziness and giddiness (principal); I10 Essential (primary) hypertension; R94.5 Abnormal results of liver function studies; M54.42 Lumbago with sciatica, left side
CPT/HCPCS: 36415; 80053

== ENCOUNTER 2018-01-27 11:27 | Outpatient (CLI) ==
--- NOTE | 2018-01-27 11:58 | DI ---
EXAM: Two views of the left knee. History: Left knee pain. Comparison: None available. Findings: No acute fracture or dislocation. Extensive chondrocalcinosis. Mild tricompartmental rowena nt space narrowing with small osteophytes. 5 mm metallic radiodensity seen within the soft tissues s uperior to the patella. Mild anterior soft tissue swelling. Impression: 1. No acute osseous abnormality. 2. Extensive chondrocalcinosis. 3. Mild tricompartmental arthritis. 4. Metallic radiodensity within the soft tissues superior to the patella consistent with a retained foreign body. 5. Mild anterior soft tissue swelling.
== END 2018-01-27 11:28 | disposition home or self-care (01) ==
LOC: RAD 11:27
PROVIDERS: ATTEND Internal Medicine
DX: M25.562 Pain in left knee (principal)

== ENCOUNTER 2019-03-22 13:03 | Observation (INO) ==
--- NOTE | 2019-03-22 15:24 | ED.PDOC ---
General ED Provider: Dr. LOBO OROSCO Chief Complaint: Rash Mode of Arrival: Wheelchair Information Source: Patient Primary Care Provider: TONY VASQUEZ Sepsis Protocol: For patient's 13 years and over: Temp is 96.8 and below OR 101 and greater Pulse >90 BPM Resp >20/minute Acutely Altered Mental Status Are patient's symptoms suggestive of a new infection, such as: -Pneumonia -Skin, Soft Tissue -Endocarditis -UTI -Bone, Joint Infection -Implantable Device -Acute Abdominal Infection -Wound Infection -Meningitis -Blood Stream Catheter Infection -Unknown GI Complaint Exam Abdominal Pain Complaint/Exam Onset: Sudden Duration: 2 days Symptoms Are: Worse Timing: Constant Initial Severity: Moderate Current Severity: Severe Location of Pain: RLQ, LLQ and Suprapubic Radiates To: Reports Back Character: Reports Aching, Throbbing and Cramping Aggravating: Reports Movement Alleviating: Reports Rest and Position Associated Signs and Symptoms: Reports Decreased appetite AAA Risk Factors: Reports None Cardiac Risk Factors: Reports None Testicular Torsion Risk Factors: Reports None Surgical Obstruction Risk Factors: Reports None Related Surgical History: Reports None Abdominal Findings: Present Abdominal distention, CVA Tenderness and Hernia Differential Diagnoses: Bowel Obstruction and Other (hernia/SHINGLES RLQ ABDOMEN INTO RT FLANK) Review of Systems Review Of Systems Constitutional: Reports No symptoms Eyes: Reports No symptoms Ears, Nose, Mouth, Throat: Reports No symptoms Respiratory: Reports No symptoms Cardiac: Reports No symptoms GI: Reports Abdomen distended, Abdominal pain and Poor appetite : Reports No symptoms Musculoskeletal: Reports No symptoms Skin: Reports No symptoms Neurological: Reports No symptoms Endocrine: Reports No symptoms Hematologic/Lymphatic: Reports No symptoms All Other Systems: Reviewed and Negative Physical Exam Physical Exam Appearance: Ill-appearing, Well-nourished and Obese Ill-appearing: Moderate Pain Distress: Moderate Eyes: RAMSEY, EOMI, Conjunctiva clear, Conjunctiva inflammed, Conjunctiva pale, Right pupil size and Left pupil size ENT: Ears normal, Nose normal and Oropharynx normal Neck: Supple Respiratory: Airway patent, Breath sounds clear and Breath sounds equal Cardiovascular: RRR, Pulses normal and No rub GI/: Soft, Tender and Mass (FULLNESS ACROSS MIDLINE LOWER ABDOMEN-?UMBIL HERNIA) Musculoskeletal: Normal strength, ROM intact, No edema and No calf tenderness Skin: Warm and Dry Neurological: Sensation intact and Alert to pain Psychiatric: Affect appropriate, Mood appropriate and Anxious Course Course Hematology/Chemistry: 03/22/19 17:20 03/22/19 17:20 Orders, Labs, Meds: Lab Review 03/22/19 03/22/19 03/22/19 17:16 17:20 17:20 WBC RBC Hgb Hct MCV MCH MCHC RDW Coeff of Alejandrina Plt Count Immature Gran % (Auto) Neut % (Auto) Lymph % (Auto) [place] % (Auto) Eos % (Auto) Baso % (Auto) Immature Gran # (Auto) Neut # (Auto) Lymph # (Auto) [place] # (Auto) Eos # (Auto) Baso # (Auto) PT INR APTT Puncture Site Rrad O2 Saturation 96.0 ABG pH 7.365 ABG pCO2 41.2 ABG pO2 86.0 ABG HCO3 23.6 ABG Total CO2 25 ABG Base Excess -2 Tomi Test + FiO2 % 21.0 Sodium 137.1 Potassium 5.11 H Chloride 102.8 Carbon Dioxide 28.9 Anion Gap 10.51 BUN 22.5 H Creatinine 1.00 Estimated GFR (MDRD) 73.00 BUN/Creatinine Ratio 22.50 Glucose 112.8 H Calcium 9.60 Iron 82.6 TIBC 311 % Saturation 27 Total Bilirubin 0.61 AST 149.1 H ALT 184.2 H Alkaline Phosphatase 250.3 H NT-Pro-B Natriuret Pep Total Protein 8.30 H Albumin 4.10 Globulin 4.20 Albumin/Globulin Ratio 0.97 Amylase 69.7 Lipase 64.2 03/22/19 03/22/19 03/22/19 17:20 17:20 17:20 WBC 7.64 RBC 3.64 L Hgb 10.9 L Hct 34.5 L MCV 94.8 H MCH 29.9 MCHC 31.6 L RDW Coeff of Alejandrina 18.7 H Plt Count 346 Immature Gran % (Auto) 0.5 Neut % (Auto) 60.8 Lymph % (Auto) 26.4 [place] % (Auto) 10.6 H Eos % (Auto) 1.2 Baso % (Auto) 0.5 Immature Gran # (Auto) 0.0 Neut # (Auto) 4.6 Lymph # (Auto) 2.0 [place] # (Auto) 0.8 Eos # (Auto) 0.1 Baso # (Auto) 0.0 PT 10.4 INR 1.06 APTT 40.1 H Puncture Site O2 Saturation ABG pH ABG pCO2 ABG pO2 ABG HCO3 ABG Total CO2 ABG Base Excess Tomi Test FiO2 % Sodium Potassium Chloride Carbon Dioxide Anion Gap BUN Creatinine Estimated GFR (MDRD) BUN/Creatinine Ratio Glucose Calcium Iron TIBC % Saturation Total Bilirubin AST ALT Alkaline Phosphatase NT-Pro-B Natriuret Pep 3100.000 H Total Protein Albumin Globulin Albumin/Globulin Ratio Amylase Lipase Orders Category Date Time Status ADMIT PATIENT INPATIENT .TO [facility] (MONITORED BED) ADMISSION 03/22/19 17:37 Active ABG DRAW REQUEST Stat CARDIO 03/22/19 17:16 Completed EKG-(ED ONLY) Stat CARDIO 03/22/19 15:24 Completed EKG-(ED ONLY) Stat CARDIO 03/22/19 17:09 Completed TELEMETRY MONITORING TELE CARE 03/22/19 17:38 Active IV [ED IV/MEDIPORT/POWERPORT] .ONCE EMERGENCY 03/22/19 15:27 Active ABG Stat LAB 03/22/19 17:16 Completed AMYLASE Stat LAB 03/22/19 17:20 Completed COMPREHENSIVE METABOLIC PANEL Stat LAB 03/22/19 17:20 Completed IRON AND TIBC Stat LAB 03/22/19 17:20 Completed LIPASE Stat LAB 03/22/19 17:20 Completed NT-PROBNP Stat LAB 03/22/19 17:20 Completed PARTIAL THROMBOPLASTIN TIME Stat LAB 03/22/19 17:20 Completed PT WITH INR Stat LAB 03/22/19 17:20 Completed URINALYSIS C & S IF INDICATED Stat LAB 03/22/19 15:25 Uncollected 0.9 % Sodium Chloride [Saline Flush] MEDS 03/22/19 15:26 Active 1 syr IVF PRN PRN Nalbuphine HCl [Nubain] MEDS 03/22/19 15:28 Discontinued 10 mg IVP ONCE STA Nalbuphine HCl [Nubain] MEDS 03/22/19 17:40 Discontinued 10 mg IVP ONCE STA Sodium Chloride 0.9% [Sodium Chloride] 1,000 ml MEDS 03/22/19 18:00 Discontinued IV DAILY CHEST, 2 VIEWS PA & LAT Stat RADS 03/22/19 17:[address] ABDOMEN/PELVIS WO CONTRAST Stat RADS 03/22/19 15:24 Completed Medications Generic Name Dose Route Start Last Admin Trade Name Freq PRN Reason Stop Dose Admin Sodium Chloride 1 syr 03/22/19 15:26 03/22/19 15:54 Saline Flush IVF 1 syr PRN PRN Administration To flush IV Discontinued Medications Generic Name Dose Route Start Last Admin Trade Name Freq PRN Reason Stop Dose Admin Sodium Chloride 1,000 mls @ 125 mls/hr 03/22/19 18:00 Sodium Chloride IV DAILY PIETRO Ketorolac Tromethamine 15 mg 03/22/19 19:47 Toradol IVP 03/22/19 19:48 ONCE STA Nalbuphine HCl 10 mg 03/22/19 15:28 03/22/19 16:01 Nubain IVP 03/22/19 15:29 10 mg ONCE STA Administration Nalbuphine HCl 10 mg 03/22/19 17:40 03/22/19 19:49 Nubain IVP 03/22/19 17:41 10 mg ONCE STA Administration Nalbuphine HCl 10 mg 03/22/19 19:44 Nubain IVP 03/22/19 19:45 ONCE STA Vital Signs: Temp Pulse Resp BP Pulse Ox 03/22/19 13:03 97.7 F 81 16 157/67 H 98 Discharge Plan Discharge Patient Disposition: ADMITTED INPATIENT Discharge Problem: Hepatomegaly, Shingles, Abdominal pain ED Provider: LOBO OROSCO Condition: Stable
[2019-03-22] MEDS ORDERED: NUBAIN IVP STA ×3 (15:28→19:44)
--- NOTE | 2019-03-22 16:22 | CT ---
EXAM: CT Abdomen Pelvis Without contrast HISTORY: Pain across lower abdomen, evaluate for Hernia COMPARISON: 09/16/2011 TECHNIQUE: CT Abdomen Pelvis performed Without intravenous contrast. Coronal and sagital images obta ined. FINDINGS: Clear lung bases. Cardiomegaly. The liver is heterogeneous with a nodular contour and is heterogeneously enlarged measuring approxima tely 19 cm in length, new since 2012 CT. Mass-like hypodensity in the central liver measures 3.3 x 3 .6 cm and is not visualized on CT from 2012. There are other subtle hypodensities throughout the mega er. Prominent vessels at the anterior margin of the liver, possibly representing recanalization of t he umbilical vein. The spleen is upper limits of normal for size. The gallbladder, pancreas, adren als and kidneys are unremarkable. No bowel obstruction or evidence of abnormal bowel wall thickening. No adenopathy. Normal diameter aorta. Scattered mild atherosclerotic calcifications. No abnormal fluid collection, free fluid or free air. No acute osseous abnormality. Right total hip arthroplasty without evidenc e of hardware complication. IMPRESSION: 1. Findings suggesting cirrhosis with possible portal hypertension. 2. Interval heterogeneous enlargement of the liver with hypodense central mass measuring 3.6 cm and probable other smaller masses throughout the liver. Findings are highly concerning for malignancy. R ecommend MRI for further evaluation 3. No acute intra-abdominal findings. 4. Mild atherosclerosis. 5. Right total arthroplasty. Urgent findings discussed with Dr. Carpio at 4:10 p.m.on 03/22/2019.
[2019-03-22] MEDS ORDERED: SODIUM CHLORIDE 1,000 ML IV SCH (18:00)
[2019-03-22] MEDS ORDERED: TORADOL IVP STA (19:47)
[2019-03-22 20:27] VITALS: BMI 21.5
--- NOTE | 2019-03-22 20:36 | DI ---
EXAM: Chest two views HISTORY: Shortness of breath COMPARISON: 09/13/2017 TECHNIQUE: Two views of the chest were performed FINDINGS: Similar trace left basilar scarring. Remaining lungs are clear. There is no pleural effu hollie or pneumothorax. The heart is normal in size. The mediastinal contour is normal. Similar righ t hilar and right mediastinal calcified granulomas. There are no acute abnormalities of the bones. R ight shoulder arthroplasty IMPRESSION: No acute cardiopulmonary process.
[2019-03-22] MEDS ORDERED: NORVASC PO STA (21:02)
[2019-03-22] MEDS: TORADOL IVP PRN (21:59)
[2019-03-22] MEDS: NEURONTIN PO SCH (21:59)
[2019-03-22] MEDS: KLONOPIN PO SCH (21:59)
[2019-03-22] MEDS: SODIUM CHLORIDE 1,000 ML IV SCH (22:42)
[2019-03-23] MEDS: TORADOL IVP PRN ×3 (05:11→21:49)
[2019-03-23] MEDS: SODIUM CHLORIDE 1,000 ML IV SCH ×3 (05:11→21:50)
[2019-03-23] MEDS: NUBAIN IVP PRN ×3 (06:21→16:43)
[2019-03-23] MEDS ORDERED: ZOFRAN 4 MG/2 ML IVP STA (09:52)
[2019-03-23] MEDS ORDERED: LOPRESSOR PO SCH (10:00)
[2019-03-23] MEDS ORDERED: NEURONTIN PO SCH ×2 (10:00→15:00)
[2019-03-23] MEDS ORDERED: COZAAR PO SCH (10:00)
--- NOTE | 2019-03-23 12:01 | HP ---
DATE OF SERVICE: 03/22/19 HISTORY OF PRESENT ILLNESS: This 73 year old /WHITE M was hospitalized 03/22/19 with right flank pain going to the groin more like herpetic neuralgia. He had history of herpes zoster 6 weeks ago untreated. His workup with the CT scan of the abdomen showed markedly enlarged liver with possible metastatic disease. The patient is waiting for MRI with contrast to be done. PAST MEDICAL HISTORY: Hypertension Chronic kidney disease Generalized osteoarthritis Mitral regurgitation with systolic murmur Reflux disease REVIEW OF SYSTEMS: CONSTITUTIONAL: No night sweats. No fatigue, malaise, lethargy. No fever or chills. HEENT: Eyes: No visual changes. No eye pain. No eye discharge. ENT: No runny nose. No epistaxis. No sinus pain. No sore throat. No odynophagia. No ear pain. No congestion. RESPIRATORY: No cough, no congestion. No hemoptysis. No shortness of breath. CARDIOVASCULAR: No angina symptoms. No CHF symptoms. No atypical chest pain for CAD. No palpitations. No PND. No orthopnea. GASTROINTESTINAL: No abdominal pain. No nausea or vomiting. No diarrhea or constipation. No hematemesis. No hematochezia. GENITOURINARY: No urgency. No frequency. No dysuria. No hematuria. No obstructive symptoms. No discharge. No pain. No significant abnormal bleeding. MUSCULOSKELETAL: No musculoskeletal pain. No joint swelling. No arthritis. NEUROLOGICAL: No headache. No neck pain. No syncope. No seizures. No dizziness. PSYCHIATRIC: Not anxious. No depression. No suicidal thoughts. No homicidal thoughts. SKIN: No rash. No lesions. No wounds. ENDOCRINE: No unexplained weight loss. No weight gain. HEMATOLOGIC/LYMPHATIC: No anemia. No purpura. No petechiae. No prolonged or excessive bleeding. No palpable lymph nodes. PERSONAL/FAMILY/SOCIAL HISTORY: The patient lives with brother and [id number]. The patient does all activity of daily living. Noncompliant with medications and recommendations. He has never understood his medical problems even with teaching of his medical problems. Nonsmoker. No alcohol use. MEDICATIONS: (HOME) Cozaar 50 mg p.o. daily Metoprolol Tartrate 25 mg p.o. b.i.d. Klonopin 0.5 mg p.o. daily Pantoprazole 40 mg p.o. q.d a.c. Celebrex 100 mg p.o. b.i.d. Gabapentin 300 mg p.o. t.i.d. ALLERGIES: NKDA PHYSICAL EXAMINATION: GENERAL: The patient is sitting in chair in no distress. VITAL SIGNS: HEENT: Head normocephalic, atraumatic. Eyes: Extraocular muscles are intact. Pupils are equal, round and reactive to light and accommodation. Ears: No lesions. Nose appeared normal. Throat: No exudate or erythema. NECK: Supple. No JVD, no carotid bruit. No lymphadenopathy or thyromegaly. LUNGS: Clear to auscultation. Percussion note normal. Chest symmetrical. HEART: S1, S2, no S3. Grade II-III/ systolic murmur radiating to axillary area. No cyanosis or clubbing. No ascites. Pulses: Dorsalis pedis and posterior tibial pulses +1 to +2 bilaterally. ABDOMEN: Scar tissue with resolving herpes zoster noted on right flank area going to the back and groin area. Liver is palpable 10 finger breadths below costal margin with mild tenderness of the skin. Soft. Bowel sounds active. No CVA tenderness. No mass felt. EXTREMITIES: Trace edema. Full range of motion of all extremities, equal. NEUROLOGIC: No focal deficit. Cranial nerves II through XII are grossly intact. No headache, no double vision or headache. SKIN: Not dry. Intact. Turgor - normal. LYMPHATIC: No palpable lymph nodes/no lymphedema. MUSCULOSKELETAL: Normal joints with no swelling. Muscle tone is normal. LAB/X-RAY REVIEW: 03/23/19 04:50: Sodium 136.9, Potassium 4.78, Chloride 102.0, Carbon Dioxide 27.6, Anion Gap 12.08, BUN 26.7 H, Creatinine 1.26 H, Estimated GFR (MDRD) 56.00, BUN/Creatinine Ratio 21.19, Glucose 97.2, Calcium 9.59, Total Bilirubin 0.54, AST 124.3 H, ALT 169.3 H, Alkaline Phosphatase 233.0 H, Total Protein 8.03, Albumin 4.09, Globulin 3.94, Albumin/Globulin Ratio 1.03 03/23/19 04:50: WBC 7.11, RBC 3.58 L, Hgb 10.6 L, Hct 34.0 L, MCV 95.0 H, MCH 29.6, MCHC 31.2 L, RDW Coeff of Alejandrina 18.6 H, Plt Count 351, Immature Gran % (Auto) 0.6, Neut % (Auto) 56.8, Lymph % (Auto) 28.7, [place] % (Auto) 11.3 H, Eos % (Auto) 1.8, Baso % (Auto) 0.8, Immature Gran # (Auto) 0.0, Neut # (Auto) 4.0, Lymph # (Auto) 2.0, [place] # (Auto) 0.8, Eos # (Auto) 0.1, Baso # (Auto) 0.1 03/22/19 17:20: TSH 1.850 03/22/19 17:20: WBC 7.64, RBC 3.64 L, Hgb 10.9 L, Hct 34.5 L, MCV 94.8 H, MCH 29.9, MCHC 31.6 L, RDW Coeff of Alejandrina 18.7 H, Plt Count 346, Immature Gran % (Auto) 0.5, Neut % (Auto) 60.8, Lymph % (Auto) 26.4, [place] % (Auto) 10.6 H, Eos % (Auto) 1.2, Baso % (Auto) 0.5, Immature Gran # (Auto) 0.0, Neut # (Auto) 4.6, Lymph # (Auto) 2.0, [place] # (Auto) 0.8, Eos # (Auto) 0.1, Baso # (Auto) 0.0 03/22/19 17:20: PT 10.4, INR 1.06, APTT 40.1 H 03/22/19 17:20: NT-Pro-B Natriuret Pep 3100.000 H 03/22/19 17:20: Iron 82.6, TIBC 311, % Saturation 27 03/22/19 17:20: Sodium 137.1, Potassium 5.11 H, Chloride 102.8, Carbon Dioxide 28.9, Anion Gap 10.51, BUN 22.5 H, Creatinine 1.00, Estimated GFR (MDRD) 73.00, BUN/Creatinine Ratio 22.50, Glucose 112.8 H, Calcium 9.60, Total Bilirubin 0.61, AST 149.1 H, ALT 184.2 H, Alkaline Phosphatase 250.3 H, Total Protein 8.30 H, Albumin 4.10, Globulin 4.20, Albumin/Globulin Ratio 0.97, Amylase 69.7, Lipase 64.2 03/22/19 17:16: Puncture Site Rrad, O2 Saturation 96.0, ABG pH 7.365, ABG pCO2 41.2, ABG pO2 86.0, ABG HCO3 23.6, ABG Total CO2 25, ABG Base Excess -2, Tomi Test +, FiO2 % 21.0 UA color orange, clarity clear. pH 5.5. specific gravity 1.020, 1+ protein, negative glucose, trace ketones, positive nitrite, negative blood, 1+ bilirubin, 0.2 urobilinogen, negative esterase, 0-2 microscopic WBC, 0-2 epitheleal cells, Chest x-ray two views - No acute cardiopulmonary process. CT scan of abdomen and pelvis without contrast. Findings suggesting cirrhosis with possible portal hypertension. Interval heterogeneous enlargement of the liver with hypodense central mass measuring 3.6 cm and probable other smaller masses throughout the liver. Findings are highly concerning for malignancy. Recommend MRI for further evaluation. No acute intraabdominal findings. Mild atherosclerosis. Right total arthroplasty. ABGs 02 saturation 96.0, pH 7.365, pc02 41.2, p02 86.0, HC03 23.6, c02 25, base excess -2, FI02 21.0. ASSESSMENT: 1. Right lower quadrant pain more like abdominal wall pain with no acute findings on CT scan of the abdomen. 2. Hepatomegaly with possibility of metastatic liver disease. 3. Chronic kidney disease. 4. Herpes zoster recent infection involving right flank and right lumbar dermatome. 5. Anemia. 6. Mitral regurgitation. 7. Hypertension. 8. Severe generalized osteoarthritis. 9. Noncompliance of recommendations, medications and followup of all aspects of medical care. PLAN: 1. MRI of abdomen and pelvis with contrast. 2. CEA level pending. 3. CBC, CMP. 4. Continue Metoprolol. 5. Decrease Cozaar 50 mg daily. 6. Neurontin 300 mg t.i.d. 7. D/C Celebrex. CONDITION: Stable. PROGNOSIS: Guarded. TIME SPENT: More than 70 minutes. SCRIBED BY: MARLENE SANTOS, Traffic Police Officer scribed while in presence of service performed by Dr. TONY VASQUEZ on 03/23/19 ([id number]) DEANDRAD
[2019-03-23] MEDS: KLONOPIN PO SCH ×2 (12:25→20:34)
--- NOTE | 2019-03-23 13:04 | PCM.PROG ---
Attending Provider: ATTENDING PROVIDER: Dr. TONY VASQUEZ DATE OF SERVICE: 03/23/19 SUBJECTIVE: This 73 year old /WHITE M was hospitalized 03/22/19 with right flank pain going to the groin more like herpetic neuralgia. He has history of herpes zoster 6 weeks ago untreated. His workup with the CT scan of abdomen showed markedly enlarged liver with possibility of metastatic disease. The patient is waiting for MRI with contrast to be done. REVIEW OF SYSTEMS: CONSTITUTIONAL: No night sweats. No fatigue, malaise, lethargy. No fever or chills. HEENT: Eyes: No visual changes. No eye pain. No eye discharge. ENT: No runny nose. No epistaxis. No sinus pain. No odynophagia. No congestion. RESPIRATORY: No cough, no congestion. No hemoptysis. No shortness of breath. CARDIOVASCULAR: No angina symptoms. No CHF symptoms. No atypical chest pain for CAD. No palpitations. No orthopnea.. GASTROINTESTINAL: Right lower quadrant pain. No nausea or vomiting. No diarrhea or constipation. No hematemesis. No hematochezia. GENITOURINARY: No urgency. No frequency. No dysuria. No hematuria. No obstructive symptoms. No discharge. No pain. No significant abnormal bleeding. MUSCULOSKELETAL: No musculoskeletal pain; no joint swelling. NEUROLOGICAL: Awake, alert, oriented to time, place and person. No headache. No neck pain. No syncope. No seizures. No dizziness. PSYCHIATRIC: Not anxious. No depression. No suicidal thoughts. No homicidal thoughts. SKIN: Rash over right lower quadrant. ENDOCRINE: No unexplained weight loss. No weight gain. HEMATOLOGIC/LYMPHATIC: No anemia. No purpura. No petechiae. No prolonged or excessive bleeding. No palpable lymph nodes. PHYSICAL EXAMINATION: GENERAL: The patient is awake, alert and oriented, lying/sitting in bed in no distress. VITAL SIGNS: Temperature 98.4 F, Pulse 76, Respiratory Rate 15, BP 148/72, Pulse Ox 96% HEENT: Head normocephalic, atraumatic. Eyes: Extraocular muscles are intact. Pupils are equal, round and reactive to light and accommodation. Ears: No lesions. Nose appeared normal. Throat: No exudate or erythema. NECK: Supple. No JVD, no carotid bruit. No lymphadenopathy or thyromegaly. LUNGS: Clear to auscultation. Percussion note normal. Chest symmetrical. HEART: S1, S2, no S3. Grade II to III/ systolic murmur radiating to axillary area. Scar tissue resolving. No cyanosis or clubbing. No ascites. Pulses: Dorsalis pedis and posterior tibial pulses +1 to +2 both sides. ABDOMEN: Herpes zoster noted on right flank area going to the back and groin area. Liver is palpable 10 fingers below costal margin milfd tenderness of the skin. Soft. Non-tender. Bowel sounds active. No CVA tenderness. No mass felt. EXTREMITIES: Trace edema. Full range of motion of all extremities, equal. NEUROLOGIC: No focal deficit. Cranial nerves II through XII are grossly intact. No headache, no double vision or headache. SKIN: Warm and dry. Intact. Turgor-normal. LYMPHATIC: No palpable lymph nodes/no lymphedema. MUSCULOSKELETAL: Normal joints with no swelling. Muscle tone is normal. LAB REVIEW: 03/23/19 04:50 03/23/19 04:50 03/23/19 04:50: Sodium 136.9, Potassium 4.78, Chloride 102.0, Carbon Dioxide 27.6, Anion Gap 12.08, BUN 26.7 H, Creatinine 1.26 H, Estimated GFR (MDRD) 56.00, BUN/Creatinine Ratio 21.19, Glucose 97.2, Calcium 9.59, Total Bilirubin 0.54, AST 124.3 H, ALT 169.3 H, Alkaline Phosphatase 233.0 H, Total Protein 8.03, Albumin 4.09, Globulin 3.94, Albumin/Globulin Ratio 1.03 03/23/19 04:50: WBC 7.11, RBC 3.58 L, Hgb 10.6 L, Hct 34.0 L, MCV 95.0 H, MCH 29.6, MCHC 31.2 L, RDW Coeff of Alejandrina 18.6 H, Plt Count 351, Immature Gran % (Auto) 0.6, Neut % (Auto) 56.8, Lymph % (Auto) 28.7, [place] % (Auto) 11.3 H, Eos % (Auto) 1.8, Baso % (Auto) 0.8, Immature Gran # (Auto) 0.0, Neut # (Auto) 4.0, Lymph # (Auto) 2.0, [place] # (Auto) 0.8, Eos # (Auto) 0.1, Baso # (Auto) 0.1 03/22/19 17:20: TSH 1.850 03/22/19 17:20: WBC 7.64, RBC 3.64 L, Hgb 10.9 L, Hct 34.5 L, MCV 94.8 H, MCH 29.9, MCHC 31.6 L, RDW Coeff of Alejandrina 18.7 H, Plt Count 346, Immature Gran % (Auto) 0.5, Neut % (Auto) 60.8, Lymph % (Auto) 26.4, [place] % (Auto) 10.6 H, Eos % (Auto) 1.2, Baso % (Auto) 0.5, Immature Gran # (Auto) 0.0, Neut # (Auto) 4.6, Lymph # (Auto) 2.0, [place] # (Auto) 0.8, Eos # (Auto) 0.1, Baso # (Auto) 0.0 03/22/19 17:20: PT 10.4, INR 1.06, APTT 40.1 H 03/22/19 17:20: NT-Pro-B Natriuret Pep 3100.000 H 03/22/19 17:20: Iron 82.6, TIBC 311, % Saturation 27 03/22/19 17:20: Sodium 137.1, Potassium 5.11 H, Chloride 102.8, Carbon Dioxide 28.9, Anion Gap 10.51, BUN 22.5 H, Creatinine 1.00, Estimated GFR (MDRD) 73.00, BUN/Creatinine Ratio 22.50, Glucose 112.8 H, Calcium 9.60, Total Bilirubin 0.61, AST 149.1 H, ALT 184.2 H, Alkaline Phosphatase 250.3 H, Total Protein 8.30 H, Albumin 4.10, Globulin 4.20, Albumin/Globulin Ratio 0.97, Amylase 69.7, Lipase 64.2 03/22/19 17:16: Puncture Site Rrad, O2 Saturation 96.0, ABG pH 7.365, ABG pCO2 41.2, ABG pO2 86.0, ABG HCO3 23.6, ABG Total CO2 25, ABG Base Excess -2, Tomi Test +, FiO2 % 21.0 ASSESSMENT: Please see below. 1. Right lower quadrant pain more like abdominal wall pain with no acute findings on CT scan of the abdomen. 2. Hepatomegaly with possibility of metastatic liver disease. 3. Chronic kidney disease. 4. Herpes zoster recent infection involving right flank and right lumbar dermatome. 5. Anemia. 6. Mitral regurgitation. 7. Hypertension. 8. Severe generalized osteoarthritis. 9. Noncompliance with recommendations, medications and followup as well as all aspects of medical care. PLAN: 1. Continue Metoprolol. 2. Decrease Cozaar 50 mg daily. 3. Neurontin 300 mg t.i.d. 4. D/C Celebrex. 5. MRI of abdomen and pelvis with contrast. 6. CEA level pending. 7. CBC, CMP. Plan and coordination of the patient's care discussed in the presence of Bus Analyst and nurse. CONDITION: Stable. Prognosis is guarded. SCRIBED BY: Olu WAREist scribed while in presence of service performed by Dr. TONY VASQUEZ on 03/23/19 ([id number])
[2019-03-23] MEDS: NEURONTIN PO SCH ×3 (14:02→20:32)
[2019-03-23] MEDS: LOPRESSOR PO SCH (20:32)
[2019-03-24] MEDS: NUBAIN IVP PRN ×4 (02:11→20:21)
[2019-03-24] MEDS: LOPRESSOR PO SCH ×2 (08:44→20:24)
[2019-03-24] MEDS: NEURONTIN PO SCH ×3 (08:44→20:23)
[2019-03-24] MEDS: COZAAR PO SCH (08:44)
[2019-03-24] MEDS: KLONOPIN PO SCH ×2 (08:44→20:23)
--- NOTE | 2019-03-24 09:03 | PCM.PROG ---
Attending Provider: ATTENDING PROVIDER: Dr. TONY VASQUEZ DATE OF SERVICE: 03/24/19 SUBJECTIVE: This 73 year old /WHITE M was hospitalized 03/22/19 with hepatomegaly, possibility of metastastic liver disease. The patient's main problem is right lower quadrant pain coming from herpetic neuralgia. He has pain this morning and will be given Nubain. The patient is up and about. Cardiovascular status is stable. REVIEW OF SYSTEMS: CONSTITUTIONAL: No night sweats. No fatigue, malaise, lethargy. No fever or chills. HEENT: Eyes: No visual changes. No eye pain. No eye discharge. ENT: No runny nose. No epistaxis. No sinus pain. No odynophagia. No congestion. RESPIRATORY: No cough, no congestion. No hemoptysis. No shortness of breath. CARDIOVASCULAR: No angina symptoms. No CHF symptoms. No atypical chest pain for CAD. No palpitations. No orthopnea.. GASTROINTESTINAL: Herpetic neuralgia pain. No nausea or vomiting. No diarrhea or constipation. No hematemesis. No hematochezia. GENITOURINARY: No urgency. No frequency. No dysuria. No hematuria. No obstructive symptoms. No discharge. No pain. No significant abnormal bleeding. MUSCULOSKELETAL: No musculoskeletal pain; no joint swelling. NEUROLOGICAL: Awake, alert, oriented to time, place and person. No headache. No neck pain. No syncope. No seizures. No dizziness. PSYCHIATRIC: Not anxious. No depression. No suicidal thoughts. No homicidal thoughts. SKIN: No rash. No lesions. No wounds. ENDOCRINE: No unexplained weight loss. No weight gain. HEMATOLOGIC/LYMPHATIC: No anemia. No purpura. No petechiae. No prolonged or excessive bleeding. No palpable lymph nodes. PHYSICAL EXAMINATION: GENERAL: The patient is awake, alert and oriented, lying/sitting in bed in no distress. VITAL SIGNS: Temperature 97.9 F, Pulse 72, Respiratory Rate 18, BP 152/67, Pulse Ox 96% HEENT: Head normocephalic, atraumatic. Eyes: Extraocular muscles are intact. Pupils are equal, round and reactive to light and accommodation. Ears: No lesions. Nose appeared normal. Throat: No exudate or erythema. NECK: Supple. No JVD, no carotid bruit. No lymphadenopathy or thyromegaly. LUNGS: Clear to auscultation. Percussion note normal. Chest symmetrical. HEART: Grade II to III/ systolic murmur with mitral regurgitation. S1, S2, no S3. No cyanosis or clubbing. No ascites. Pulses: Dorsalis pedis and posterior tibial pulses +1 to +2 both sides. ABDOMEN: Soft. Non-tender. Bowel sounds active. No CVA tenderness. No mass felt. EXTREMITIES: No edema. Full range of motion of all extremities, equal. NEUROLOGIC: No focal deficit. Cranial nerves II through XII are grossly intact. No headache, no double vision or headache. SKIN: Warm and dry. Intact. Turgor-normal. LYMPHATIC: No palpable lymph nodes/no lymphedema. MUSCULOSKELETAL: Normal joints with no swelling. Muscle tone is normal. LAB REVIEW: 03/24/19 04:57 03/24/19 04:57 03/24/19 04:57: Sodium 135.9, Potassium 4.98, Chloride 103.6, Carbon Dioxide 26.1, Anion Gap 11.18, BUN 29.8 H, Creatinine 1.31 H, Estimated GFR (MDRD) 53.00, BUN/Creatinine Ratio 22.74, Glucose 96.1, Calcium 9.00, Total Bilirubin 0.50, AST 109.9 H, ALT 157.0 H, Alkaline Phosphatase 216.5 H, Total Protein 7.48, Albumin 3.77, Globulin 3.71, Albumin/Globulin Ratio 1.01 03/24/19 04:57: WBC 6.90, RBC 3.29 L, Hgb 9.8 L, Hct 31.8 L, MCV 96.7 H, MCH 29.8, MCHC 30.8 L, RDW Coeff of Alejandrina 18.6 H, Plt Count 289, Immature Gran % (Auto) 0.4, Neut % (Auto) 62.2, Lymph % (Auto) 22.8, [place] % (Auto) 10.3 H, Eos % (Auto) 3.6, Baso % (Auto) 0.7, Immature Gran # (Auto) 0.0, Neut # (Auto) 4.3, Lymph # (Auto) 1.6, [place] # (Auto) 0.7, Eos # (Auto) 0.3, Baso # (Auto) 0.1 03/23/19 08:00: Urine Color [place], Urine Clarity Clear, Urine pH 5.5, Ur Specific [place] 1.020, Urine Protein 1+, Urine Glucose (UA) Negative, Urine Ketones Trace, Urine Blood Negative, Urine Nitrite Positive, Urine Bilirubin 1+, Urine Urobilinogen 0.2, Ur Leukocyte Esterase Negative, Urine Microscopic WBC 0- 2, Ur Squamous Epith Cells 0-2, Ur Renal Epithelial Cell 0-2, Amorphous Sediment Trace, Urine Bacteria Trace, Hyaline Casts 2-5 03/23/19 04:50: Thyroxine (T4) 9.6 ASSESSMENT: Please see below. 1. Herpetic neuralgia severe with history of right lower dermatome lumbar regio n herpes zoster. 2. Hepatomegaly with possibility of metastatic liver disease. 3. Mitral regurgitation. 4. Chronic kidney disease. 5. Chronic anemia. 6. Noncompliance. PLAN: 1. CT scan abdomen and pelvis to be done today using small amount of contrast. 2. PSA. 3. Nubain 10 mg p.r.n. q.4hr. 4. Echocardiogram. 5. Discharge home. Plan and coordination of the patient's care discussed in the presence of Dance Master and nurse. CONDITION: Stable SCRIBED BY: MARLENE SANTOS, Drop Hammer Pile Driver Operator scribed while in presence of service performed by Dr. TONY VASQUEZ on 03/24/19 ([id number])
--- NOTE | 2019-03-24 10:11 | CT ---
Exam: CT abdomen pelvis without and with intravenous contrast. Comparison: 03/22/2019. Reason for exam: Liver lesion. FINDINGS: The partially imaged heart appears prominent in size. 6 mm nodule is seen in the right lower lobe. There is mild basilar atelectasis. The spleen, adrenal glands, and pancreas appear grossly unremarkable. No evidence of bowel obstruction. No ureterolithiasis or hydronephrosis. Hepatomegaly. There is a 8 cm mixed echogenicity lesion within the hepatic parenchyma with a nonspecific enhancemen t pattern as seen on axial image number 31. The liver has a slightly nodular appearance. There is likely being canalization of the umbilical vein. No intra-abdominal free air. The bladder appears grossly unremarkable. No suspicious appearing osteoblastic or osteolytic lesion with degenerative disease in the lumbosacra l spine. Impression: 1. 8 cm mixed echogenicity lesion within the hepatic parenchyma with a nonspecific enhancement patte rn. Findings are concerning for neoplasm. Recommend MRI with and without intravenous contrast and i nterventional radiology consultation for biopsy. 2. Parenchymal change and secondary signs suggesting chronic liver disease. 3. 6 mm nodule in the right lower lobe. Consider CT imaging of the chest for further characterizati on. 4. Cardiomegaly
--- NOTE | 2019-03-24 11:35 | PN ---
DATE OF SERVICE: 03/22/19 SUBJECTIVE: The patient was seen in the emergency room by ER attending because of abdominal pain mainly his abdominal pain was right lower quadrant going around the waist. The patient's pain was more like hepatic neuralgia. CT scan of the abdomen done which showed markedly enlarged liver with possibility of metastatic liver disease. The patient's liver tests are mildly abnormal with elevated Alkaline phosphatase, SGPT,SGOT. The patient has history of herpes zoster which happened involving the right lower lumbar dermatome nearly 6 weeks ago. The patient's kidney function are normal. Serum amylase and lipase normal. Chest x-ray was reported as normal. REVIEW OF SYSTEMS: CONSTITUTIONAL: No night sweats. No fatigue, malaise, lethargy. No fever or chills. HEENT: Eyes: No visual changes. No eye pain. No eye discharge. ENT: No runny nose. No epistaxis. No sinus pain. No sore throat. No odynophagia. No congestion. RESPIRATORY: No cough, no congestion. No hemoptysis. No shortness of breath. CARDIOVASCULAR: No angina symptoms. No CHF symptoms. No atypical chest pain for CAD. No palpitations. No PND. No orthopnea. GASTROINTESTINAL: No abdominal pain. No nausea or vomiting. No diarrhea or constipation. No hematemesis. No hematochezia. GENITOURINARY: No urgency. No frequency. No dysuria. No hematuria. No obstructive symptoms. No discharge. No pain. No significant abnormal bleeding. MUSCULOSKELETAL: No musculoskeletal pain; no joint swelling. NEUROLOGICAL: No headache. No neck pain. No syncope. No seizures. No dizziness. PSYCHIATRIC: Not anxious. No depression. No suicidal thoughts. No homicidal thoughts. SKIN: No rash. No lesions. No wounds. ENDOCRINE: No unexplained weight loss. No weight gain. HEMATOLOGIC/LYMPHATIC: No anemia. No purpura. No petechiae. No prolonged or excessive bleeding. No palpable lymph nodes. PHYSICAL EXAMINATION: HEENT: Head normocephalic, atraumatic. Eyes: Extraocular muscles are intact. Pupils are equal, round and reactive to light and accommodation. Ears: No lesions. Nose appeared normal. Throat: No exudate or erythema. NECK: Supple. No JVD, no carotid bruit. No lymphadenopathy or thyromegaly. LUNGS: Clear to auscultation. Percussion note normal. Chest symmetrical. HEART: S1, S2, no S3. Grade II/ systolic murmurs. No cyanosis or clubbing. No ascites. Pulses: Dorsalis pedis and posterior tibial pulses +1 to +2 bilaterally. ABDOMEN: Soft. Nontender. Bowel sounds active. No CVA tenderness. No mass felt. EXTREMITIES: Trace edema. Full range of motion of all extremities, equal. NEUROLOGIC: No focal deficit. Cranial nerves II through XII are grossly intact. No headache, no double vision or headache. SKIN: Not dry. Intact. Turgor - normal. LYMPHATIC: No palpable lymph nodes/no lymphedema. MUSCULOSKELETAL: Normal joints with no swelling. Muscle tone is normal. ASSESSMENT: 1. Herpes Zoster with Hepatic neuralgia with abdominal wall pain 2. Hepatomegaly with possibility of secondaries in the liver primary practically unknown 3. Anemia 4. Generalized osteoarthritis 5. Systolic murmur PLAN: 1. Start IV fluids 2. Nubain 5mg IV along with Toradol 50mg IV 3. Do CA level 4. Daily CBC and CMP 5. Echocardiogram 6. MRI of the abdomen with contrast TIME SPENT: More than 30 minutes. Plan and coordination of the patient's care discussed in the presence of nurse. BALJIT
[2019-03-24] MEDS: TORADOL IVP PRN (11:44)
[2019-03-24] MEDS: SODIUM CHLORIDE 1,000 ML IV SCH (13:54)
[2019-03-25] MEDS: TORADOL IVP PRN ×2 (00:02→08:45)
[2019-03-25] MEDS: NUBAIN IVP PRN ×2 (01:55→06:23)
[2019-03-25 05:11] VITALS: BP 136/68; TEMP 97.7
[2019-03-25] MEDS: SODIUM CHLORIDE 1,000 ML IV SCH (08:41)
[2019-03-25] MEDS ORDERED: TAMSULOSIN 0.4 MG PO SCH (09:00)
[2019-03-25] MEDS ORDERED: VALIUM SYRINGE IM ONE ×2 (09:00)
[2019-03-25] MEDS ORDERED: NUBAIN IVP STA (09:02)
[2019-03-25] MEDS ORDERED: ZOFRAN 4 MG/2 ML IVP STA (09:02)
[2019-03-25] MEDS ORDERED: DILAUDID 4 MG/ML SYRINGE IVP STA (09:24)
[2019-03-25] MEDS ORDERED: DILAUDID 1 MG/ML SYRINGE IVP STA (09:41)
[2019-03-25] MEDS ORDERED: NUBAIN IVP PRN (10:37)
[2019-03-25] MEDS: KLONOPIN PO SCH (12:07)
[2019-03-25] MEDS: COZAAR PO SCH (12:55)
[2019-03-25] MEDS: LOPRESSOR PO SCH (12:56)
[2019-03-25] MEDS: NEURONTIN PO SCH (12:57)
--- NOTE | 2019-03-28 09:10 | MRI ---
EXAM: MRI abdomen without and with contrast HISTORY: Lesion of the liver, right lower quadrant pain TECHNIQUE: Multiplanar, multisequence without and following the administration of intravenous Dotare m, 13 mL using adynamic contrast enhanced hepatic protocol. The exam is acquired on an open 1.5 Tesl a magnet. COMPARISON: CT abdomen from 03/24/2019 FINDINGS: The heart is mildly enlarged. No pericardial or pleural effusions are appreciated. Respiratory motion obscures details on several sequences. In addition, the [id number]-[id number] ratio is suboptimal. No obvious fat or iron deposition is appreciated within the hepatic parenchyma. There i s an encapsulated lesion in hepatic segment VIII measuring 7.3 x 6.6 cm. This has early arterial enh ancement with possible washout. There is diffusion restriction within this lesion. A small adjacent lesion in hepatic segment VIII has similar signal measuring 10 mm. There is similar lesion in hepat ic segment VII is 3.6 cm. No other obvious lesions are detected. The portal hepatic veins are paten t. The liver has a cirrhotic configuration. The spleen maintains normal size and signal. The adren al glands have normal signal morphology. The pancreas is not well seen but maintains normal bright T 1 signal. The gallbladder is nondilated and is free intraluminal filling defects. There is no bilia ry dilatation. No pancreatic divisum or duodenal diverticula are evident The kidneys have normal size and signal. No ureteral pelvicaliectasis is appreciated. The visible i ntestines have normal signal and caliber without evidence of obstruction or acute inflammation. No ob vious lymphadenopathy is detected. The bone marrow signal intensity is within normal limits. IMPRESSION: 1. Limited examination. 2. Probable hepatocellular carcinoma cannot segment VIII and possible additional hepatocellular carc inoma in hepatic segment VII. Additional tiny lesion in hepatic segment VIII measuring 10 mm is susp icious for hepatocellular carcinoma. 3. Hepatic cirrhosis. 4. Mild cardiomegaly.
--- NOTE | 2019-03-28 10:19 | ECHO2D ---
Date of Exam: 03/25/19 Ordering Physician: DR. TONY VASQUEZ Room #: [id number] Reason for Echo: HTN, SYSTOLIC MURMUR M-Mode Normal Adult Results LV Dimensions Normal Adult Results AoV Opening excursions >1.6 >1.6 LVEDD-base- 3.5-5.8 4.0 Ao root dimensions 2.0-3.7 3.5 LVESD-base- 3.1-4.6 L. Atrium dimensions 1.9-3.8 6.1 Post. Wall thickness 0.8-1.1 1.4 IV septum (thickness) 0.7-1.2 1.4 Post. Wall excursion 0.72-1.3 NORMAL Septal motion NORMAL Systolic motion R. Ventricular cavity 1.5-2.0 NORMAL LVEF 60% 70% Paradoxical septal wall motion NORMAL 2-D : 2-D M Mode Echocardiogram was performed using apical four chamber and left parasternal long and short axis views. Tricuspid and aortic valves appear to be normal. CALCIFIC MITRAL VALVE ANNULUS. Contractility of the left ventricle seems to be normal, so is the cavity size. ENLARGED LEFT ATRIAL CAVITY. Aortic root appears to be normal. There is no pericardial effusion. There is no thrombus noted in the left ventricle or left atrial cavity. No mitral valve prolapse noted. COLOR FLOW: MODERATE MITRAL REGURGITATION M-MODE: MV: CALCIFIC MITRAL VALVE ANNULUS--POSSIBLE MITRAL VALVE PROLAPSE AV: NORMAL TV: NORMAL PV: CHAMBER SIZE: ENLARGED LEFT ATRIAL CAVITY WALL MOTION: NORMAL PERICARDIUM: NORMAL INTERPRETATION: 1. CALCIFIC MITRAL VALVE ANNULUS--POSSIBLE MITRAL VALVE PROLAPSE 2. LEFT VENTRICULAR HYPERTROPHY WITH MARKEDLY ENLARGED LEFT ATRIAL CAVITY 3. MODERATE MITRAL REGURGITATION NOTED 4. DIFFICULT STUDY--BODY HABITUS MTDD
--- NOTE | 2019-04-01 12:52 | PN ---
DATE OF SERVICE: 03/24/19 SUBJECTIVE: 73-year-old white male then had CT scan of the abdomen with contrast which showed centimeter sized lesion in the liver, could not for sure what kind it was but to rule out malignancy, MRI was recommended. I talked to the [id number] about it, Lexie, who agreed with me that the patient should have that done while he is in the hospital so it will be done the next day. The first time it was attempted, it was impossible because of the patient's ability to lay still. This time we are going to sedate the patient with Valium and will try to do it tomorrow. Discharge will be postponed. Otherwise the patient's condition is stable. TIME SPENT: More than 30 minutes. Plan and coordination of the patient's care discussed in the presence of nurse. BALJIT
--- NOTE | 2019-04-01 13:17 | DS ---
DATE OF SERVICE: 03/25/19 FINAL DIAGNOSIS: 1. HERPETIC NEURALGIA, RIGHT LUMBAR LOWER DERMATOME. 2. HEPATOMEGALY WITH HEPATIC MASS, MRI REPORT PENDING. 3. GENERALIZED OSTEOARTHRITIS. 4. HYPERTENSION. 5. CHRONIC KIDNEY DISEASE. 6. CHRONIC ANEMIA. 7. SYSTOLIC MURMUR WITH MITRAL REGURGITATION. 8. SPINAL STENOSIS, SEVERE. 9. RIGHT SHOULDER SURGERY BY DR. Lo VASQUEZ. DISCHARGE INSTRUCTIONS: Followup appointment with Dr. Vasquez on March 28 at 10:15 a.m. MEDICATIONS AT DISCHARGE: Cozaar 50 mg p.o. daily Metoprolol 25 mg p.o. b.i.d. Klonopin 0.5 mg p.o. daily Pantoprazole 40 mg p.o. q.d a.c. Flomax 0.4 mg p.o. daily NEW PRESCRIPTIONS: Tramadol 50 mg one b.i.d. #60 Gabapentin 600 mg one b.i.d. #60 DISCONTINUED MEDICATIONS: Celebrex 100 mg p.o. b.i.d. Gabapentin 300 mg p.o. t.i.d. DIET INSTRUCTIONS: Resume as tolerated. ACTIVITY: Resume as tolerated. SMOKING: Nonsmoker DISEASE SPECIFIC EDUCATION: Medications Diagnoses Followup Diet and activity HOSPITAL COURSE: This 73-year-old male was hospitalized with herpetic neuralgia involving right flank, right groin area. The patient was treated with Nubain, Toradol IV. Further workup which was done in the emergency room revealed marked hepatomegaly with possibility of metastatic liver disease. The patient underwent MRI, the reports are pending. The hepatic mass was seen 8 cm size, was unable to define properly whether it could be neoplastic or not. The patient has a long history of alcoholism, stopped drinking 20 years ago. He use to drink fairly heavy. The patient's cardiovascular status is stable. He is noncompliant, takes nonsteroidal antiinflammatories in spite of the fact that he has been repeatedly worn about not to take it. He is noncompliant on medications. He has very poor understanding of medical problems. He is mostly taken care of by [id number], Lexie. He was discharged on Tramadol to be taken 50 mg twice a day. Neurontin was increased to 600 mg twice a day. The rest of the medications Cozaar, Klonopin, Pantoprazole, Metoprolol and Flomax were continued. CONDITION AT TIME OF DISCHARGE: Stable. TIME SPENT: More than 60 minutes. MTDD
--- NOTE | 2019-04-01 13:19 | PN ---
BILLING 03/22/19 ADMISSION DAY LEVEL 5 03/23/19 INTERMEDIATE 03/24/19 INTERMEDIATE 03/25/19 DISCHARGE MTDD
== END 2019-03-25 14:35 | disposition left against medical advice (07) ==
LOC: ED 13:03 → INTOOBSV 17:46 → MEDSURG B 17:46
PROVIDERS: ADMIT Internal Medicine; ATTEND Internal Medicine
DX: I34.0 Nonrheumatic mitral (valve) insufficiency; M15.9 Polyosteoarthritis, unspecified; R21 Rash and other nonspecific skin eruption; R63.0 Anorexia; R16.0 Hepatomegaly, not elsewhere classified; D64.9 Anemia, unspecified; R01.1 Cardiac murmur, unspecified; R10.30 Lower abdominal pain, unspecified; M48.00 Spinal stenosis, site unspecified; Z91.19 Patient's noncompliance with other medical treatment and regimen; B02.29 Other postherpetic nervous system involvement; N18.9 Chronic kidney disease, unspecified